=== PATIENT | female | born 1960 | race Caucasian/White ===

== ENCOUNTER 2022-07-28 14:38 | Emergency (ER) | payer MEDICARE, OTHER ==
[~2022-07-28] VITALS: Ht 160 cm; Wt 71.7 kg
[2022-07-28] MEDS ORDERED: Mupirocin22 GM TOP (15:07)
== END 2022-07-28 15:15 | disposition home or self-care (01) ==
LOC: ER 14:38
DX: L03.011 Cellulitis of right finger (principal); Z88.5 Allergy status to narcotic agent; Z88.8 Allergy status to other drugs, medicaments and biological substances
CPT/HCPCS: 99282